=== PATIENT | female | born 1980 | race Caucasian/White ===

== ENCOUNTER 2019-12-13 14:11 | Outpatient (CLI) | payer MEDICAID, SELFPAY ==
--- NOTE | 2019-12-13 14:36 | PC.NURSE ---
[id number] Patient here outpatient for migraine. IVF's ordered and Depakote, Decadron, and Reglan. No other concerns voiced at this time.
[2019-12-13] MEDS: METOCLOPRAMIDE HCL INJ 10 MG/2 ML VIAL IV PUSH (15:20)
[2019-12-13] MEDS: DEXAMETHASONE SOD PHOS INJ 4 MG/ML VIAL IV PUSH (15:20)
[2019-12-13] MEDS: DIVALPROEX SODIUM 250 MG TABEC 500 MG PO (15:20)
[2019-12-13] MEDS: SODIUM CHLORIDE 0.9% IV 1,000 ML 1000 ML IVPB (15:25)
[2019-12-13 15:31] VITALS: BP 126/74; PULSE 78; RESP 14; TEMP 36.6; O2SAT 97
== END 2019-12-13 14:12 | disposition home or self-care (01) ==
PROVIDERS: PCP Nurse Practitioner Family; Visit Provider Nurse Practitioner Family
DX: G43.909 Migraine, unspecified, not intractable, without status migrainosus (principal)
CPT/HCPCS: 96360; 96361; A9270; J1100; J2765; J7030

== ENCOUNTER 2020-01-10 09:04 | Outpatient (CLI) | payer BC, MEDICAID, SELFPAY ==
[2020-01-10 22:47] LABS: SARS-CoV-2 RNA PCR Negative
== END 2020-01-10 09:05 | disposition home or self-care (01) ==
LOC: CHSLAB 09:05
PROVIDERS: PCP Nurse Practitioner Family; Visit Provider Nurse Practitioner Family
DX: Z20.828 Contact with and (suspected) exposure to other viral communicable diseases (principal)
CPT/HCPCS: 87635; C9803; U0003

== ENCOUNTER 2020-04-17 11:58 | Outpatient (CLI) | payer MEDICAID, SELFPAY ==
[2020-04-18 01:02] LABS: SARS-CoV-2 RNA PCR Negative
== END 2020-04-17 11:59 | disposition home or self-care (01) ==
LOC: CHSLAB 12:02
PROVIDERS: PCP Nurse Practitioner Family; Visit Provider Nurse Practitioner Family
DX: R09.81 Nasal congestion (principal); Z20.828 Contact with and (suspected) exposure to other viral communicable diseases
CPT/HCPCS: 87635; C9803; U0003

== ENCOUNTER 2020-06-06 10:04 | Outpatient (CLI) | payer BC, MEDICAID, SELFPAY ==
--- NOTE | ~2020-06-06 | XR_ITS ---
EXAMINATION: XR knee LT 3V DATE: 06/06/2020 10:39 INDICATION: Left knee pain. TECHNIQUE: 3 views of left knee on 4 radiographs were obtained. COMPARISON: None. FINDINGS: Bone alignment is normal. No fracture. Joint spaces are well maintained. There is no knee j oint effusion. IMPRESSION: 1. Normal left knee. Reviewed, dictated and finalized at location B. ING MECHANIC IMPRESSION: 1. Normal left knee.
== END 2020-06-06 10:05 | disposition home or self-care (01) ==
PROVIDERS: PCP Nurse Practitioner Family; Visit Provider Nurse Practitioner Family
DX: M25.561 Pain in right knee (principal)
CPT/HCPCS: 73562

== ENCOUNTER 2020-10-09 11:19 | Outpatient (CLI) | payer MEDICAID, SELFPAY ==
[2020-10-09 14:46] LABS: SARS-CoV-2 RNA PCR Negative (Negative)
== END 2020-10-09 11:20 | disposition home or self-care (01) ==
LOC: CHSLAB 11:23
PROVIDERS: PCP Nurse Practitioner Family; Visit Provider Nurse Practitioner Family
DX: Z20.822 Contact with and (suspected) exposure to COVID-19 (principal)
CPT/HCPCS: C9803; U0003; U0005

== ENCOUNTER 2020-12-08 17:34 | Outpatient (CLI) | payer OTHER, MEDICAID, SELFPAY ==
[2020-12-08 19:01] LABS: SARS-CoV-2 RNA PCR Negative (Negative)
== END 2020-12-08 17:35 | disposition home or self-care (01) ==
LOC: CHSLAB 17:39
PROVIDERS: PCP Nurse Practitioner Family; Visit Provider Nurse Practitioner Family
DX: Z20.822 Contact with and (suspected) exposure to COVID-19 (principal)
CPT/HCPCS: C9803; U0003; U0005

== ENCOUNTER 2021-11-20 13:54 | Outpatient (CLI) | payer OTHER, MEDICAID, SELFPAY ==
--- NOTE | ~2021-11-20 | XR_ITS ---
XR_CERV2-3V_CR DATE: 11/20/2021 14:29 INDICATION: Neck pain. No known injury. TECHNIQUE: AP, open-mouth, lateral views COMPARISON: None FINDINGS: There is reversal of cervical curvature which may be due to muscle spasm. Mild levoscoliosi s of cervical and upper thoracic spine C1 and C2 are normally aligned and the odontoid process is intact. There is moderately prominent loss of interspace height and prominent anterior spurring at C5-6. The remaining cervical interspaces are well preserved. No fracture or dislocation, locked facet or prevertebral soft tissue swelling. IMPRESSION: Reversal of cervical curvature and mild levoscoliosis Moderately prominent degenerative disc disease at C5-6 Reviewed, dictated and finalized at Location A. Reviewed, dictated and finalized at location A.
[2021-11-20 14:19] LABS: Basophils Absolute Auto 0.05 K/mm3 (0.00-0.10); Basophils Percent Auto 0.6 % (0.0-1.0); Eosinophils Absolute Auto 0.22 K/mm3 (0.02-0.50); Eosinophils Percent Auto 2.6 % (1.0-6.0); Hematocrit 47.1 % (35.0-49.0); Immature Granulocyte Absolute 0.03 K/mm3 (0.00-0.00); Immature Granulocyte Percent A 0.4 % (0.0-0.0); Lymphocytes Absolute Auto 2.76 K/mm3 (1.10-4.50); Lymphocytes Percent Auto 33.1 % (18.0-42.0); Mean Corpuscular Hemoglobin 30.5 pg (27.0-31.0); Mean Corpuscular Volume 89.9 fL (78.0-102.0); Monocytes Absolute Auto 0.67 K/mm3 (0.10-0.90); Neutrophils Absolute Auto 4.6 K/mm3 (1.7-7.2); Neutrophils Percent Auto 55.3 % (50.0-70.0); Platelet Count Result 242 K/mm3 (150-420); Red Blood Count 5.24 M/mm3 (4.20-5.40); Red Cell Distribution Width 12.6 % (11.6-14.4); White Blood Count 8.4 K/mm3 (4.8-10.8)
[2021-11-20 14:48] LABS: Aspartate Amino Transferase 12 U/L (15-37); Blood Urea Nitrogen 0 mg/dL (7-18)
[2021-11-20 15:05] LABS: Alanine Aminotransferase 33 U/L (14-59); Albumin Level 3.8 g/dL (3.4-5.0); Alkaline Phosphatase 102 U/L (46-116); Anion Gap 10 mmol/L (8-16); Bilirubin,Total 0.4 mg/dL (0.00-1.00); Calcium 8.9 mg/dL (8.5-10.1); Carbon Dioxide 25 mmol/L (21-32); Chloride 106 mmol/L (98-108); Estimated Glomerular Filt Rate > 60; Glucose 99 mg/dL (70-99); Magnesium 2.1 mg/dL (1.8-2.4); Osmolality Calculated 287 mOsm/kg (285-295); Potassium 3.9 mmol/L (3.5-5.1); Sodium 141 mmol/L (136-145)
[2021-12-01 13:25] LABS: Gliadin AB, IgG <1.0 U/mL (<15.0); Reticulin IgA Negative (Negative); TTG IGA AB <1.0 U/mL (<15.0)
== END 2021-11-20 13:55 | disposition home or self-care (01) ==
LOC: CHSIMG 13:56
PROVIDERS: PCP Nurse Practitioner Family; Visit Provider Nurse Practitioner Family
DX: M54.2 Cervicalgia (principal); R19.8 Other specified symptoms and signs involving the digestive system and abdomen; R11.2 Nausea with vomiting, unspecified; E83.42 Hypomagnesemia
CPT/HCPCS: 36415; 72040; 80053; 83516; 83735; 85025; 86255

== ENCOUNTER 2021-11-22 07:52 | Outpatient (CLI) | payer OTHER, MEDICAID, SELFPAY ==
--- NOTE | ~2021-11-22 | US_ITS ---
US abdomen limited INDICATION: Postprandial pain, nausea and vomiting. Weight loss. PROCEDURE: Realtime right upper abdominal ultrasound. COMPARISON: No prior studies for comparison. FINDINGS: The pancreas is normal without focal mass or pancreatic ductal dilation. There are 2 echog enic masses in the liver measuring 10 and 9 mm greatest dimension respectively. In the absence of kno wn malignancy these are likely benign hemangiomas. Recommend follow-up ultrasound as clinically indic ated. There is normal directional flow in the portal vein. The gallbladder is normal without stones, gallbladder wall thickening or pericholecystic fluid. Comm on bile duct measures 3) mm. No sonographic Montague's sign. IMPRESSION: 1: Hyperechoic liver nodules measuring 1 cm or less, most likely benign hemangiomas in the absence of known malignancy. Clinically correlate. If there is no malignancy, consider correlation with dynamic contrast-enhanced MRI. Otherwise, recommend follow-up ultrasound as clinically warranted. Reviewed, dictated and finalized at location A. IMPRESSION: 1: Hyperechoic liver nodules measuring 1 cm or less, most likely benign hemangi omas in the absence of known malignancy. Clinically correlate. If there is no m alignancy, consider correlation with dynamic contrast-enhanced MRI. Otherwise, recommend follow-up ultrasound as clinically warranted.
== END 2021-11-22 07:53 | disposition home or self-care (01) ==
LOC: CHSIMG 07:55
PROVIDERS: PCP Nurse Practitioner Family; Visit Provider Nurse Practitioner Family
DX: R10.9 Unspecified abdominal pain (principal)
CPT/HCPCS: 76705

== ENCOUNTER 2021-11-26 07:52 | Outpatient (RCR) | payer OTHER, MEDICAID, SELFPAY ==
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
== END 2021-11-28 23:59 | disposition home or self-care (01) ==
LOC: CHSPT 07:52
PROVIDERS: PCP Nurse Practitioner Family; Visit Provider Nurse Practitioner Family
DX: M40.202 Unspecified kyphosis, cervical region (principal)
CPT/HCPCS: 97014; 97110; 97140; 97161; G0283

== ENCOUNTER 2021-12-07 10:38 | Outpatient (CLI) | payer OTHER, MEDICAID, SELFPAY ==
--- NOTE | 2021-12-07 10:55 | PC.NURSE ---
Here for OP fluids and medications for headache
[2021-12-07] MEDS: SODIUM CHLORIDE 0.9% IV 1,000 ML 250 ML IVPB (11:14)
[2021-12-07] MEDS: METOCLOPRAMIDE HCL INJ 10 MG/2 ML VIAL IV PUSH (11:16)
[2021-12-07] MEDS: DEXAMETHASONE SOD PHOS INJ 4 MG/ML VIAL IV PUSH (11:19)
[2021-12-07] MEDS: DIVALPROEX SODIUM ER 500 MG TAB.24H PO (11:22)
--- NOTE | 2021-12-07 11:41 | PC.NURSE ---
Nausea has eased, white soda given
--- NOTE | 2021-12-07 15:35 | PC.NURSE ---
Patient completed IV infusoin. Patient stated headache was improved. Able to ambulate to car.
== END 2021-12-07 10:39 | disposition home or self-care (01) ==
LOC: CHSTREATRM 10:42
PROVIDERS: PCP Nurse Practitioner Family; Visit Provider Nurse Practitioner Family
DX: G43.909 Migraine, unspecified, not intractable, without status migrainosus (principal)
CPT/HCPCS: 96360; 96361; 96374; 96375; A9270; J1100; J2765; J7030

== ENCOUNTER 2021-12-11 09:50 | Outpatient (CLI) | payer OTHER, MEDICAID, SELFPAY ==
[2021-12-13 21:49] LABS: Lactoferrin, Stool Negative (Negative)
== END 2021-12-11 09:51 | disposition home or self-care (01) ==
LOC: CHSLAB 09:53
PROVIDERS: PCP Nurse Practitioner Family; Visit Provider Nurse Practitioner Family
DX: R19.8 Other specified symptoms and signs involving the digestive system and abdomen (principal)
CPT/HCPCS: 83630

== ENCOUNTER 2021-12-12 07:02 | Outpatient (CLI) | payer OTHER, MEDICAID, SELFPAY ==
--- NOTE | ~2021-12-12 | NM_ITS ---
EXAMINATION: NM hepatobiliary w pharm DATE: 12/12/2021 10:53 INDICATION: Abdominal pain, GERD and diarrhea COMPARISON: None. TECHNIQUE: 5.2 mCi Tc-99m mebrofenin (Choletec) was administered intravenously. Scintigraphic images of the abdomen were obtained for one hour. 1.6 mcg sincalide (Kinevac) was administered by slow intr avenous infusion, and imaging was continued for 30 minutes. Gallbladder ejection fraction was calcula victor manuel by the technologist. FINDINGS: There is normal clearance of radiotracer from the blood pool. There is homogeneous tracer uptake by t he liver. Activity progresses to the gallbladder and bowel. The gallbladder ejection fraction (GBEF) is 92% (normal 10-90%, but most patient with gallbladder dysfunction have GBEF < 35% which does over lap with the normal range). IMPRESSION: 1. Normal hepatobiliary scan Reviewed, dictated and finalized at location A.
== END 2021-12-12 07:03 | disposition home or self-care (01) ==
PROVIDERS: PCP Nurse Practitioner Family; Visit Provider Nurse Practitioner
DX: K21.9 Gastro-esophageal reflux disease without esophagitis (principal); K58.2 Mixed irritable bowel syndrome; K76.89 Other specified diseases of liver; R11.2 Nausea with vomiting, unspecified; R19.7 Diarrhea, unspecified; R19.8 Other specified symptoms and signs involving the digestive system and abdomen
CPT/HCPCS: 78227; A9537; J2805

== ENCOUNTER 2021-12-15 06:48 | Outpatient (CLI) | payer OTHER, MEDICAID, SELFPAY ==
--- NOTE | ~2021-12-15 | MR_ITS ---
EXAMINATION: MR abdomen wo/w con DATE: 12/15/2021 08:23 INDICATION: Liver mass. TECHNIQUE: Magnetic resonance imaging (MRI) of the abdomen was performed without and with 20 mL Multi Nick intravenous contrast. COMPARISON: Abdomen ultrasound 11/22/2021 FINDINGS: The liver, gallbladder, spleen, pancreas, adrenal glands, and kidneys are normal. There are no dilate d loops of bowel. There are no pathologically enlarged lymph nodes. There is no free intraperitoneal fluid. There are changes of posterior fusion procedure in lumbar spine. IMPRESSION: 1. Normal liver. No abnormal mass identified. Reviewed, dictated and finalized at location A.
== END 2021-12-15 06:49 | disposition home or self-care (01) ==
LOC: CHSIMG 06:49
PROVIDERS: PCP Nurse Practitioner Family; Visit Provider Nurse Practitioner Family
DX: K76.89 Other specified diseases of liver (principal)
CPT/HCPCS: 74183; A9577

== ENCOUNTER 2021-12-25 09:31 | Outpatient (CLI) | payer OTHER, MEDICAID, SELFPAY ==
--- NOTE | ~2021-12-25 | MR_ITS ---
EXAMINATION: MR cervical spine wo con DATE: 12/25/2021 11:21 INDICATION: Cervical degenerative disc disease. TECHNIQUE: Magnetic resonance imaging (MRI) of the cervical spine was performed without intravenous c ontrast. Sequences included sagittal T2-weighted FSE, sagittal T2-weighted FS FSE, sagittal T1-weight ed FSE, axial MERGE, and axial T2-weighted FSE. COMPARISON: Cervical spine radiographs 11/20/2021 FINDINGS: There is 2 mm retrolisthesis of C5 on C6. Vertebral body heights are normal. There is moder ately decreased disc height at C5-C6. The spinal cord signal intensity is normal. The following disc levels are specifically discussed: C2-C3: The disc does not extend beyond the endplate margin. There is no uncovertebral joint osteoarth ritis. There is no facet joint osteoarthritis. There is no neural foraminal stenosis. There is no sienna tral canal stenosis. C3-C4: The disc does not extend beyond the endplate margin. There is no uncovertebral joint osteoarth ritis. There is mild bilateral facet joint osteoarthritis. There is no neural foraminal stenosis. The re is no central canal stenosis. C4-C5: The disc does not extend beyond the endplate margin. There is no uncovertebral joint osteoarth ritis. There is no facet joint osteoarthritis. There is no neural foraminal stenosis. There is no sienna tral canal stenosis. C5-C6: There is a central extrusion. There is mild bilateral uncovertebral joint osteoarthritis. Ther e is mild bilateral facet joint osteoarthritis. There is mild right neural foraminal stenosis. There is mild central canal stenosis. C6-C7: The disc does not extend beyond the endplate margin. There is no uncovertebral joint osteoarth ritis. There is mild bilateral facet joint osteoarthritis. There is no neural foraminal stenosis. The re is no central canal stenosis. C7-T1: The disc does not extend beyond the endplate margin. There is no uncovertebral joint osteoarth ritis. There is mild bilateral facet joint osteoarthritis. There is no neural foraminal stenosis. The re is no central canal stenosis. IMPRESSION: 1. Moderate spondylosis at C5-C6 and mild spondylosis at other levels. Reviewed, dictated and finalized at location A.
== END 2021-12-25 09:32 | disposition home or self-care (01) ==
LOC: CHSIMG 09:33
PROVIDERS: PCP Nurse Practitioner Family; Visit Provider Nurse Practitioner Family
DX: M41.82 Other forms of scoliosis, cervical region (principal); M54.2 Cervicalgia
CPT/HCPCS: 72141

== ENCOUNTER 2022-01-30 08:53 | Outpatient (CLI) | payer OTHER, MEDICAID, SELFPAY ==
--- NOTE | 2022-01-30 09:20 | ECG_ITS ---
Measurements Intervals [place] Rate: 66 P: 62 UT: 129 QRS: 41 QRSD: 97 T: 55 QT: 362 QTc: 380 Interpretive Statements SINUS RHYTHM DELAYED PRECORDIAL R/S TRANSITION BASELINE ARTIFACT- I, II, AVR, AVL, AVF, V1-V6 BORDERLINE ECG NO PREVIOUS ECG AVAILABLE FOR COMPARISON Electronically Signed On 01-30-2022 14:39:01 CDT by Quinn Dowling D.O.
[2022-01-30 09:41] LABS: Alanine Aminotransferase 68 U/L (14-59); Albumin Level 3.8 g/dL (3.4-5.0); Alkaline Phosphatase 89 U/L (46-116); Amylase 44 U/L (25-115); Aspartate Amino Transferase 17 U/L (15-37); Bilirubin Direct 0.1 mg/dL (0-0.2); Bilirubin,Total 0.5 mg/dL (0.00-1.00); Lipase 122 U/L (73-393); Total Protein 6.8 g/dL (6.4-8.2)
[2022-01-30 09:43] LABS: Anion Gap 8 mmol/L (8-16); Carbon Dioxide 27 mmol/L (21-32); Chloride 104 mmol/L (98-108); Potassium 4.1 mmol/L (3.5-5.1); Sodium 139 mmol/L (136-145)
[2022-01-30 09:44] LABS: Blood Urea Nitrogen 16 mg/dL (7-18); Calcium 9.3 mg/dL (8.5-10.1); Estimated Glomerular Filt Rate > 60; Glucose 83 mg/dL (70-99); Osmolality Calculated 288 mOsm/kg (285-295)
== END 2022-01-30 08:54 | disposition home or self-care (01) ==
PROVIDERS: Anesthesiology; PCP Nurse Practitioner Family; Visit Provider Surgery
DX: R00.2 Palpitations (principal); I10 Essential (primary) hypertension; K81.1 Chronic cholecystitis; Z79.899 Other long term (current) drug therapy
CPT/HCPCS: 36415; 80048; 80076; 82150; 83690; 93005

== ENCOUNTER 2022-01-31 01:06 | Day surgery (SDC) | payer OTHER, MEDICAID, SELFPAY ==
[2022-01-28 12:40] VITALS: BMI 29.3
--- NOTE | 2022-01-28 12:59 | PC.NURSE ---
Report to the Outpatient Waiting Room, entrance under the green pavilion located off [facility], at time 0930 on date 01/31/22. OR Time: 1130. Time changes happen often and if your time is changed the preop area will call you the afternoon before. - You and your visitor will be asked to self-screen and do not enter if you have any COVID symptoms. - Only one visitor and NO children visitors are allowed at this time. - The patient visitor is requested to leave or wait in car when not with patient due to restrictions. - A mask is required within the hospital. Patients may have clear liquids (water, carbonated beverages, clear teas, apple juice) until 3 hours prior to surgery with a maximum of 20 ounces. - No food from midnight until time of surgery Take the following medications with a SIP of water the morning of surgery: AMLODIPINE, LAMOTRIGINE, PROPRANOLOL, VENLAFAXINE, HYDROXYZINE/ LORAZEPAM AND INHALER IF NEEDED Medications to discontinue per physician: MELOXICAM Date to take last dose: PER DR. BURGER Please no make-up, nail upper sorbian, hairspray, perfume, deodorant, or body powder the day of surgery. No jewelry (including any body piercings) or valuables the day of surgery, leave them at home. Please take a shower or bath the night before, or the morning of, surgery with an antibacterial soap(HIBICLENS). Wear comfortable, loose fitting clothing. Children are encouraged to wear pajamas. - Jewelry must be removed prior to entering the operating room. Rings and piercings that are not removed may be cut off. - The hospital will not accept responsibility for valuables. - Please leave all valuables, including medications, at home the day of surgery. If you are going home after surgery, a licensed trolley coach driver must drive you home. - NO public transportation without another adult. - We recommend that an adult stay with you for 24 hours following discharge. - We also recommend that you do not drive, make important decision, drink alcoholic beverages, or take any drugs that were not prescribed by your health care provider for at least 24 hours after your discharge time. Follow any additional instructions given to you from your surgeon. If you or anyone in your household have experienced Covid symptoms in the past week, please notify your surgeon or the nurse liaison at the phone number below for possible testing. Telephone instructions given to PT - LYNNETTE MANDEL and asked if any additional questions and then verbalized understanding. Patient advised to call surgeon office or pre surgery nurse liaison [phone] if any additional questions.
[2022-01-31] VITALS (13 sets, daily range): BP systolic 110–176; BP diastolic 77–98; PULSE 67–77; RESP 18–22; TEMP 36–36.2; O2SAT 92–98
--- NOTE | 2022-01-31 09:10 | WPDHPUPDATE1 ---
History and Physical Update Update Date/Time: 01/31/22 09:10 History and Physical has been reviewed, including an updated exam of the patient. There are NO changes in the patient's condition. Risks, benefits, and alternatives have been discussed and questions answered. Patient agrees to proceed with procedure.
[2022-01-31] MEDS: LACTATED RINGERS 1,000 ML 30 ML IV CONT ×2 (09:30→12:06)
[2022-01-31] MEDS: INDOCYANINE GREEN 25 MG VIAL IV PUSH (09:33)
[2022-01-31] MEDS: KETOROLAC 15 MG/ML VIAL (*BKC) IV PUSH (09:33)
[2022-01-31] MEDS: ACETAMINOPHEN 500 MG TABLET 1000 MG PO (09:33)
--- NOTE | 2022-01-31 09:54 | WPDANESEPPF ---
Anes - Initial Pre Proc Eval Procedure: Operation Date: 01/31/22 11:30 Proposed Procedures p Robotic Assisted Laparoscopic Cholecystectomy - Zakia Krueger MD Date/Time: 01/31/22 09:54 Surgeon: Zakia Krueger MD Pre Op Diagnosis: Cholecystitis with Cholelithiasis Patient Data Age: 41 Gender: F Height: 1.66 m Weight: 82 kg Last Vital Signs Temp 36.0 C L 01/31/22 09:48 Pulse 72 01/31/22 09:48 Resp 18 01/31/22 09:48 BP 136/80 01/31/22 09:48 Pulse Ox 98 01/31/22 09:48 O2 Del Method Room Air 01/31/22 09:48 Allergies Allergy/AdvReac Type Severity Reaction Status Date / Time amoxicillin Allergy Intermediate Diarrhea Verified 01/31/22 09:05 Penicillins Allergy Intermediate Diarrhea Verified 01/31/22 09:05 Home Medications Medication Instructions Recorded Confirmed Type albuterol 90 mcg/actuation aerosol 90 mcg inhalation Q4-6H PRN 06/03/19 01/31/22 History inhaler Bronchospasm venlafaxine 75 mg tablet 75 mg PO DAILY 02/16/20 01/31/22 History hydroxyzine HCl 25 mg tablet 25 mg PO TID PRN anxiety #20 tabs 05/15/20 01/31/22 Rx lorazepam 0.5 mg tablet 0.5 mg PO Q8H PRN anxiety #20 tabs 05/15/20 01/31/22 Rx amlodipine 10 mg tablet 10 mg PO DAILY #30 tabs 12/17/21 01/31/22 Rx propranolol 40 mg tablet 40 mg PO Q12H #60 tabs 01/01/22 01/31/22 Rx esomeprazole magnesium 40 mg 40 mg PO DAILY #30 caps 01/07/22 01/31/22 Rx capsule,delayed release (Nexium) famotidine 20 mg tablet 20 mg PO DAILY 01/14/22 01/31/22 History lamotrigine 100 mg tablet 100 mg PO DAILY 01/14/22 01/31/22 History prazosin-polythiazide 1 mg-0.5 mg 1 cap PO DAILY 01/14/22 01/31/22 History capsule sumatriptan succinate 100 mg tablet 100 mg PO ONCE 01/14/22 01/31/22 History meloxicam 15 mg tablet 15 mg PO DAILY 01/28/22 01/31/22 History Patient hx anesthesia problems: post op nausea/vomiting Family hx anesthesia problems: none Results Review: All pre-operative results and documents have been reviewed as part of the pre-operative evaluation. [facility] Past Medical History Medical History Asthma Colon cancer screening SACHIN (generalized anxiety disorder) GERD (gastroesophageal reflux disease) HTN (hypertension) IBS (irritable bowel syndrome) Irritable bowel syndrome with alternating bowel habits Kidney stones Migraine Nausea & vomiting Tobacco dependence Surgical History Surgical History History of back surgery History of placement of ear tubes History of tonsillectomy Family History Family History Mother Diabetes mellitus Hypertension Abnormal bleeding time Grandparent Cerebrovascular accident Social History Social History Social History: drinks coffee daily Smoking packs per day: 1 Smoking cigarettes per day: 20.0 Years smoked: 12 Smoking pack-years: 12.00 Smoking status: Current every day smoker Tobacco type: cigarettes Alcohol intake: current Alcohol use details: wine socially Substance use: never Substance use type: does not use Other substance usage details: THC/CBD GUMMIES AT NIGHT Living arrangements: with family Additional living arrangements comments: 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
[2022-01-31] MEDS: ceFAZolin 2 GM/D5W 50 ML 2 GM/50 ML BAG IVPB (10:42)
[2022-01-31] MEDS: BUPIVACAINE/EPINEPHRINE 0.25% 50 ML VIAL 30 ML INFILTRATE (11:11)
--- NOTE | 2022-01-31 12:19 | W.PM.PROC2 ---
Procedure Note - Detailed Date of Procedure 01/31/22 Pre-op Diagnosis Cholecystitis with Cholelithiasis Post-op Diagnosis Same Procedure Performed Robotic assisted cholecystectomy Surgeon Zakia Krueger MD Anesthesia General Indications 41-year-old female presenting to the office with workup and imaging c/w chronic cholecystitis, cholelithiasis. Findings moderate cholecystitis, cholelithiasis Description of Procedure The patient was taken to the operating room and placed in the supine position. After adequate induction of general anesthesia, the patient was prepped and draped in the normal sterile fashion. A time-out was then done to verify the patient's identity, as well as the procedure being performed. I began by making a 8 mm incision in the periumbilical region. A Veress needle was then placed in the peritoneal cavity and CO2 gas was insufflated. After adequate pneumoperitoneum was achieved, the Veress needle was removed and a 8 mm Optiview trocar was placed under direct visualization. Once into the abdominal cavity, the introducer was removed and the laparoscope was placed through this trocar site. Under direct visualization, I placed a further 12 mm port in the left mid abdomen and 2 8 mm ports in the right mid abdomen. The robot was then docked to these ports sites. I then went to the console. The gallbladder was then identified and noted to be moderately inflamed and distended. I was able to place a grasper at the dome of the gallbladder and this was retracted up and over the liver. A 2nd retractor was used to grasp the infundibulum and retracted laterally. This allowed visualization and dissection of the triangle of Calot. There were some omental adhesions to the gallbladder and these were taken down with the cautery. I then began dissection around the triangle Calot. I first identified the cystic duct, I was able to visualize the entirety of the duct from its proximal insertion into the gallbladder 2 at the distal junction with the common hepatic/common bile duct junction. I did use the firefly visualization at this point to confirm the anatomy. The proximal cystic duct was then further skeletonized, clipped, and transected. Next I visualized the cystic artery. Again the structure was skeletonized, clipped, and transected. I then again used firefly to confirm anatomy and no aberrant anatomy was noted. I then used the Bovie cautery to take down the peritoneal attachments of the gallbladder off the liver bed. Once the gallbladder specimen was completely detached, an Endo pouch was placed through the 12 mm port site and the gallbladder specimen was placed in the endo-pouch and subsequently removed. I then re-examined the right upper quadrant. Hemostasis was noted in the liver bed and the clips were noted to be in good position on both the duct and the artery. No other pathology was seen in the right upper quadrant. All instruments were then removed and the robot was undocked. I then closed the 12 incision at the fascial level using a Zach cone and 0 Vicryl suture under direct visualization. The abdomen was then desufflated and all ports were removed. All port sites were then closed with 4-0 Monocryl subcuticular suture. Dermabond was placed on each was wound. The patient tolerated the procedure well and was extubated in the operating room postop. The patient will now be transferred to the recovery room in stable condition. Estimated Blood Loss 5 Drains No Packing No Pathology Yes Complications No immediate complications Condition Stable Disposition PACU [facility] Billing Surgery - Charge Forward: Surgery Billing
[2022-01-31] MEDS: fentaNYL CITRATE INJ (*CRX) 100 MCG/2 ML VIAL 25 MCG IV PUSH ×4 (12:30→12:42)
[2022-01-31] MEDS: ONDANSETRON INJ 4 MG/2 ML VIAL IV PUSH (12:32)
[2022-01-31] MEDS: HYDROmorphone HCL INJ (*CRX) 1 MG/ML SYR 0.5 MG IV PUSH ×4 (12:49→13:22)
[2022-01-31] MEDS: diphenhydrAMINE HCl INJ 50 MG/ML VIAL 25 MG IV PUSH ×2 (12:51→13:18)
[2022-01-31] MEDS: oxyCODONE HCL (*CRX) 5 MG TAB IR PO (14:08)
[2022-01-31] MEDS: IBUPROFEN 400 MG TABLET 800 MG PO (14:33)
== END 2022-01-31 15:38 | disposition home or self-care (01) ==
PROVIDERS: PCP Nurse Practitioner Family; Visit Provider Surgery
PROC: 0FT44ZZ Resection of Gallbladder, Percutaneous Endoscopic Approach (ICD-10-PCS; CPT 47562; principal; 2022-01-31 11:30)
DX: K81.1 Chronic cholecystitis (principal); J45.909 Unspecified asthma, uncomplicated; I10 Essential (primary) hypertension; K21.9 Gastro-esophageal reflux disease without esophagitis; K58.2 Mixed irritable bowel syndrome; F41.1 Generalized anxiety disorder; F17.210 Nicotine dependence, cigarettes, uncomplicated; F12.90 Cannabis use, unspecified, uncomplicated; Z79.51 Long term (current) use of inhaled steroids
CPT/HCPCS: 47562; 36415; 86850; 86900; 86901; 88304; A9270; J0690; J1100; J1170; J1200; J1885; J2250; J2405; J2704; J2710; J3010; J7120

== ENCOUNTER 2022-02-01 11:35 | Emergency (ER) | payer OTHER, MEDICAID, SELFPAY ==
[2022-02-01] VITALS (12 sets, daily range): BP systolic 119–156; BP diastolic 81–99; PULSE 60–78; RESP 12–25; TEMP 37.1; O2SAT 96–98
--- NOTE | ~2022-02-01 | CT_ITS ---
EXAMINATION: CTA chest PE abdomen pel DATE: 02/01/2022 13:56 INDICATION: Chest and abdominal pain post cholecystectomy yesterday TECHNIQUE: Computed tomography angiography (CTA) of the chest was performed with 100 mL Omnipaque-350 intravenous contrast timed to evaluate the pulmonary arteries. Subsequent postcontrast images of the abdomen and pelvis are obtained. Coronal maximum intensity projection 3D-reconstructions were create d by the technologist. The dose-length product (DLP) was 1079.61 mGy-cm. Automated exposure control a nd iterative reconstruction technique were employed. COMPARISON: None. FINDINGS: CTA CHEST: The pulmonary arteries are well-opacified. No pulmonary embolism is identified. There is d ependent atelectasis. There are trace pleural effusions. No pneumothorax is identified. No pathologic ally enlarged thoracic lymph nodes are identified. The heart size is normal. ABDOMEN/PELVIS CT: The gallbladder is surgically absent. There is a trace volume of fluid in the righ t upper quadrant. The liver, spleen, pancreas, and adrenal glands are normal. The kidneys are unremar kable. No pathologically enlarged abdominal or pelvic lymph nodes are identified. There is no free in traperitoneal gas or evidence of bowel obstruction. There are changes of anterior and posterior fusio n at L5-S1. A small amount gas is seen in the umbilicus, most consistent with laparoscopic port inser tion. There is an umbilical hernia containing fat. Small foci of gas are present in the right lower q uadrant abdominal wall, also consistent with recent surgery. IMPRESSION: 1. No pulmonary embolus. 2. Trace pleural effusions and bilateral dependent atelectasis. 3. Small volume of right upper quadrant fluid, likely related to recent cholecystectomy. Reviewed, dictated and finalized at location B. IMPRESSION: 1. No pulmonary embolus. 2. Trace pleural effusions and bilateral dependent atelectasis. 3. Small volume of right upper quadrant fluid, likely related to recent cholecy stectomy.
--- NOTE | 2022-02-01 11:43 | ECG_ITS ---
Measurements Intervals [place] Rate: 65 P: 67 NC: 137 QRS: 41 QRSD: 90 T: 58 QT: 366 QTc: 383 Interpretive Statements SINUS RHYTHM BASELINE ARTIFACT- V4 NORMAL ECG COMPARED TO ECG 01/30/2022 09:21:16 NO SIGNIFICANT CHANGES Electronically Signed On 02-01-2022 21:20:43 CDT by Quinn Dowling D.O.
--- NOTE | 2022-02-01 12:07 | ED.GENADULT ---
HPI - General Adult General Chief complaint: Unspecified Stated complaint: post surgical pain - gallbladder removed 01/31 Time Seen by Provider: 02/01/22 12:03 History of Present Illness HPI narrative: 41-year-old female presents to the emergency room today for severe postop pain. She was here yesterday for outpatient surgery for cholecystectomy. Her surgeon is Dr. Krueger. She has had severe pain through her abdomen since she had her surgery. She is also having pain through her chest and says that it hurts to breathe. This makes her feel short of breath. She is very tearful and appears very uncomfortable. She has not had any fever or chills. She has had nausea but no vomiting. She took her prescribed Doxy codon this morning around 5 AM but says it has not helped at all. Related Data Home Medications Medication Instructions Recorded Confirmed albuterol 90 mcg/actuation aerosol 90 mcg inhalation Q4-6H PRN 06/03/19 01/31/22 inhaler Bronchospasm venlafaxine 75 mg tablet 75 mg PO DAILY 02/16/20 01/31/22 famotidine 20 mg tablet 20 mg PO DAILY 01/14/22 01/31/22 lamotrigine 100 mg tablet 100 mg PO DAILY 01/14/22 01/31/22 prazosin-polythiazide 1 mg-0.5 mg 1 cap PO DAILY 01/14/22 01/31/22 capsule sumatriptan succinate 100 mg tablet 100 mg PO ONCE 01/14/22 01/31/22 meloxicam 15 mg tablet 15 mg PO DAILY 01/28/22 01/31/22 Allergies Allergy/AdvReac Type Severity Reaction Status Date / Time amoxicillin Allergy Intermediate Diarrhea Verified 02/01/22 11:56 Penicillins Allergy Intermediate Diarrhea Verified 02/01/22 11:56 Review of Systems Review of Systems: CONSTITUTIONAL: Denies fever, chills, or sweats. EYES: Denies visual changes, redness, or discharge. ENT: Denies rhinorrhea, congestion, sore throat, or otalgia. CARDIOVASCULAR: Describes bilateral chest pain with inspiration. RESPIRATORY: Reports feeling short of breath due to pain. No cough or chest congestion. GASTROINTESTINAL: As per HPI GENITOURINARY: Denies dysuria or hematuria. SKIN: Denies rash or itching. No redness swelling or drainage to post op incision sites. MUSCULOSKELETAL: Denies back pain, joint pain, or myalgia. NEUROLOGIC: Denies headache, numbness, dizziness, or weakness. PSYCHIATRIC: Denies anxiety or depression. [facility] Past Medical History Medical History Asthma Colon cancer screening SACHIN (generalized anxiety disorder) GERD (gastroesophageal reflux disease) HTN (hypertension) IBS (irritable bowel syndrome) Irritable bowel syndrome with alternating bowel habits Kidney stones Migraine Nausea & vomiting Tobacco dependence Surgical History Surgical History History of back surgery History of placement of ear tubes History of tonsillectomy Family History Family History Mother Diabetes mellitus Hypertension Abnormal bleeding time Grandparent Cerebrovascular accident Social History Social History Social History: drinks coffee daily Smoking packs per day: 1 Smoking cigarettes per day: 20.0 Years smoked: 12 Smoking pack-years: 12.00 Smoking status: Current every day smoker Tobacco type: cigarettes Alcohol intake: current Alcohol use details: wine socially Substance use: never Substance use type: does not use Other substance usage details: THC/CBD GUMMIES AT NIGHT Additional living arrangements comments: 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 Nontoxic appearing HEAD: Normocephalic, atraumatic. EYES: PERRLA and EOMI. NECK: Supple. No adenopathy or masses. No carotid bruits or JVD CHEST: Clear to auscultation. No respiratory distress. No wheezes rales or rhonchi HEART:
[2022-02-01] MEDS: SODIUM CHLORIDE 0.9% IV 1,000 ML 999 ML IV CONT (12:40)
[2022-02-01] MEDS: ONDANSETRON INJ 4 MG/2 ML VIAL IV PUSH (12:41)
[2022-02-01] MEDS: HYDROmorphone HCL INJ (*CRX) 1 MG/ML SYR IV PUSH (12:41)
[2022-02-01 12:44] LABS: Basophils Percent Auto 0.2 % (0.2-1.2); Eosinophils Percent Auto 0.3 % (0-4.4); Hematocrit 42.7 % (37.0-47.0); Hemoglobin 14.1 g/dL (12.0-15.0); Immature Granulocyte Absolute 0.07 K/mm3 (0.00-0.031); Immature Granulocyte Percent A 0.5 % (0-0.5); Lymphocytes Absolute Auto 2.31 K/mm3 (0.9-3.2); Lymphocytes Percent Auto 16.6 % (18.3-44.2); Mean Corpuscular Hemoglobin 30.5 pg (26-34); Mean Corpuscular Volume 92.4 fl (80-100); Mean Platelet Volume 9.7 fl (7.4-10.4); Monocytes Absolute Auto 0.9 K/mm3 (0.1-0.6); Monocytes Percent Auto 6.6 % (2.6-8.5); Neutrophils Absolute Auto 10.5 K/mm3 (1.3-6.7); Neutrophils Percent Auto 75.8 % (45.5-73.1); Platelet Count Result 232 k/mm3 (150-375); Red Blood Count 4.62 M/mm3 (4.2-5.4); Red Cell Distribution Width 13.4 % (11.5-14.5); White Blood Count 13.9 K/mm3 (4.5-10.0)
[2022-02-01 12:56] LABS: Alanine Aminotransferase 400 U/L (6-35); Albumin Level 3.6 g/dL (3.5-5.1); Alkaline Phosphatase 87 U/L (38-126); Anion Gap 5 mmol/L (8-16); Aspartate Amino Transferase 140 U/L (14-36); Bilirubin,Total 0.7 mg/dL (0.2-1.3); Blood Urea Nitrogen 15 mg/dL (7-17); Calcium 8.9 mg/dL (8.4-10.2); Carbon Dioxide 28 mmol/L (22-30); Chloride 105 mmol/L (98-107); Estimated CRCL calculation 100 ml/min; Estimated Glomerular Filt Rate > 60; Glucose 88 mg/dL (65-110); Lipase 32 U/L (23-300); Potassium 3.9 mmol/L (3.4-5.0); Sodium 138 mmol/L (137-145)
[2022-02-01 13:08] LABS: Troponin I < 0.012 ng/mL (0.000-0.034)
[2022-02-01 13:15] LABS: D Dimer 0.72 ug/mL (<0.48)
[2022-02-01] MEDS: HYDROmorphone HCL INJ (*CRX) 1 MG/ML SYR 0.5 MG IV PUSH (14:42)
[2022-02-01] MEDS: KETOROLAC 30 MG/ML VIAL (*BKC) IV PUSH (15:29)
== END 2022-02-01 16:15 | disposition home or self-care (01) ==
PROVIDERS: Emergency Provider Nurse Practitioner Family; PCP Nurse Practitioner Family
DX: G89.18 Other acute postprocedural pain (principal); R10.9 Unspecified abdominal pain; J45.909 Unspecified asthma, uncomplicated; K21.9 Gastro-esophageal reflux disease without esophagitis; I10 Essential (primary) hypertension; K58.9 Irritable bowel syndrome, unspecified; Z87.442 Personal history of urinary calculi; F41.1 Generalized anxiety disorder; F17.210 Nicotine dependence, cigarettes, uncomplicated
CPT/HCPCS: 36415; 71275; 74177; 80053; 81025; 83605; 83690; 84484; 85025; 85380; 93005; 96361; 96374; 96375; 96376; 99284; J1170; J1885; J2405; J7030; Q9967

== ENCOUNTER 2022-03-18 10:25 | Outpatient (CLI) | payer OTHER, MEDICAID, SELFPAY ==
--- NOTE | ~2022-03-18 | CT_ITS ---
EXAMINATION: CT abdomen pelvis wo con DATE: 03/18/2022 10:53 INDICATION: Lower abdominal pain since gallbladder surgery last month. Still unable to lift heavy obj ects. TECHNIQUE: Computed tomography (CT) of the abdomen and pelvis was performed without intravenous contr ast. Automated exposure control and iterative reconstruction technique were employed. Exam dose: 680 .06 mGy-cm total exam DLP. COMPARISON: 02/01/2022 CTA chest abdomen pelvis FINDINGS: The lung bases are clear. Normal heart size. No pericardial or pleural effusion. Small sliding hiatal hernia. Status post cholecystectomy. No hepatic, splenic, pancreatic, adrenal or renal space-occupying mass lesion is evident on this limi victor manuel noncontrast examination. No bile duct or pancreatic duct dilatation. The gallbladder fossa is unr emarkable, without abnormal fluid collection or inflammation. No urinary tract calculus or hydroureteronephrosis. Normal caliber of the abdominal aorta. No intraperitoneal or retroperitoneal or pelvic mass lesion or adenopathy or ascites. The uterus and adnexal areas and urinary bladder are unremarkable. No bowel obstruction, bowel wall thickening, pneumatosis or intraperitoneal free air. Normal appendix . Fat-containing umbilical hernia measures up to 2 cm with, 2.7 cm AP dimension.. Status post posterior and interbody spinal fusion at L5-S1. 4 mm retrolisthesis and mild degenerative disc disease at L4-5. No suspicious osteolytic or osteoblastic lesions. IMPRESSION: Small sliding hiatal hernia Status post cholecystectomy Status post posterior and interbody spinal fusion at L5-S1 4 mm retrolisthesis and mild degenerative disc disease at L4-5 Reviewed, dictated and finalized at [facility]. Reviewed, dictated and finalized at location A.
== END 2022-03-18 10:26 | disposition home or self-care (01) ==
LOC: ANHIMG 10:32
PROVIDERS: PCP Nurse Practitioner Family; Visit Provider Surgery
DX: K44.9 Diaphragmatic hernia without obstruction or gangrene (principal); M51.36 Other intervertebral disc degeneration, lumbar region; Z90.49 Acquired absence of other specified parts of digestive tract
CPT/HCPCS: 74176

== ENCOUNTER 2022-06-24 00:50 | Day surgery (SDC) | payer OTHER, SELFPAY ==
[2022-06-12 08:22] VITALS: BMI 31.7
[2022-06-24 09:30] VITALS: BP 119/92; PULSE 80; RESP 18; TEMP 36; O2SAT 100; BMI 31.9
[2022-06-24] MEDS: LACTATED RINGERS 1,000 ML 150 ML IV CONT (09:46)
--- NOTE | 2022-06-24 09:57 | WPDANESEPPF ---
Anes - Initial Pre Proc Eval Procedure: Operation Date: 06/24/22 11:00 Proposed Procedures p Esophagogastroduodenoscopy - Ronal Valdes MD Date/Time: 06/24/22 09:57 Surgeon: Ronal Valdes MD Pre Op Diagnosis: dysphagia Patient Data Age: 42 Gender: F Height: 1.65 m Weight: 87.1 kg Last Vital Signs Temp 36.0 C L 06/24/22 09:30 Pulse 80 06/24/22 09:30 Resp 18 06/24/22 09:30 BP 119/92 H 06/24/22 09:30 Pulse Ox 100 06/24/22 09:30 O2 Del Method Room Air 06/24/22 09:30 Allergies Allergy/AdvReac Type Severity Reaction Status Date / Time amoxicillin AdvReac Intermediate Diarrhea Verified 06/24/22 09:35 Penicillins AdvReac Intermediate Diarrhea Verified 06/24/22 09:35 Home Medications Medication Instructions Recorded Confirmed Type albuterol 90 mcg/actuation aerosol 90 mcg inhalation Q4-6H PRN 06/03/19 06/24/22 History inhaler Bronchospasm venlafaxine 75 mg tablet 75 mg PO DAILY 02/16/20 06/24/22 History lorazepam 0.5 mg tablet 0.5 mg PO Q8H PRN anxiety #20 tabs 05/15/20 06/24/22 Rx propranolol 40 mg tablet 40 mg PO Q12H #60 tabs 01/01/22 06/24/22 Rx famotidine 20 mg tablet 20 mg PO DAILY PRN Indigestion 01/14/22 06/24/22 History lamotrigine 100 mg tablet 100 mg PO DAILY 01/14/22 06/24/22 History sumatriptan succinate 100 mg tablet 50 mg PO DAILY PRN Migraine 01/14/22 06/24/22 History Headache meloxicam 15 mg tablet 15 mg PO DAILY PRN Pain 01/28/22 06/24/22 History amlodipine 10 mg tablet 10 mg PO DAILY #30 tabs 02/19/22 06/24/22 Rx albuterol sulfate 0.63 mg/3 mL 0.63 mg (3 mL) inhalation Q4-6H 04/16/22 06/24/22 Rx solution for nebulization PRN shortness of breath or wheezing #75 mL benzonatate 200 mg capsule 200 mg PO BID PRN cough #20 caps 04/16/22 06/24/22 Rx pantoprazole 40 mg tablet,delayed 40 mg PO BID #60 tabs 05/27/22 06/24/22 Rx release (Protonix) Patient hx anesthesia problems: none Family hx anesthesia problems: none Results Review: All pre-operative results and documents have been reviewed as part of the pre-operative evaluation. [facility] Past Medical History Medical History Asthma Colon cancer screening SACHIN (generalized anxiety disorder) GERD (gastroesophageal reflux disease) HTN (hypertension) IBS (irritable bowel syndrome) IBS (irritable bowel syndrome) Irritable bowel syndrome with alternating bowel habits Kidney stones Migraine Nausea & vomiting Tobacco dependence Surgical History Surgical History History of back surgery History of placement of ear tubes History of tonsillectomy Hx laparoscopic cholecystectomy 01/31/22 Family History Family History Mother Diabetes mellitus Hypertension Abnormal bleeding time Grandparent Cerebrovascular accident Social History Social History Social History: drinks coffee daily Smoking packs per day: 1 Smoking cigarettes per day: 20.0 Years smoked: 12 Smoking pack-years: 12.00 Smoking status: Current every day smoker Tobacco type: cigarettes Alcohol intake: current Alcohol use details: 3 drinks wine monthly Substance use: current Substance use type: other Other substance usage details: THC/CBD gummies Lack of Transportation: No Lack of Food: Never True Current Housing: I Have Housing Concerned About Future Housing: No Difficulty Paying Gas/Electric Bills: No Difficulty Paying for Meds: No Currently Unemployed: No Education: Bachelor's Degree Difficulty w/ Childcare or Family Care: No Living arrangements: with family Additional living arrangements comments: Occupation/Education: occupation 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
--- NOTE | 2022-06-24 10:25 | WPDHPUPDATE1 ---
History and Physical Update Update Date/Time: 06/24/22 10:25 History and Physical has been reviewed, including an updated exam of the patient. There are NO changes in the patient's condition. Risks, benefits, and alternatives have been discussed and questions answered. Patient agrees to proceed with procedure.
[2022-06-24 10:38] VITALS: BP 106/82; PULSE 85; RESP 16; O2SAT 98
[2022-06-24 10:47] VITALS: BP 114/87; PULSE 76; RESP 18; O2SAT 99
[2022-06-24 10:59] VITALS: BP 127/92; PULSE 72; RESP 21; O2SAT 100
== END 2022-06-24 11:04 | disposition home or self-care (01) ==
PROVIDERS: PCP Nurse Practitioner Family; Visit Provider Internal Medicine Gastroenterology
PROC: 0DJ08ZZ Inspection of Upper Intestinal Tract, Via Natural or Artificial Opening Endoscopic (ICD-10-PCS; CPT 43235; principal; 2022-06-24 11:00)
DX: K21.9 Gastro-esophageal reflux disease without esophagitis (principal); K44.9 Diaphragmatic hernia without obstruction or gangrene; K29.50 Unspecified chronic gastritis without bleeding; I10 Essential (primary) hypertension; K58.9 Irritable bowel syndrome, unspecified; J45.909 Unspecified asthma, uncomplicated; F41.1 Generalized anxiety disorder; F17.210 Nicotine dependence, cigarettes, uncomplicated; F12.90 Cannabis use, unspecified, uncomplicated; E66.9 Obesity, unspecified; Z68.32 Body mass index [BMI] 32.0-32.9, adult; Z79.51 Long term (current) use of inhaled steroids
CPT/HCPCS: 43239; 88305; J2704; J7120

== ENCOUNTER 2023-01-21 16:36 | Outpatient (CLI) | payer OTHER, SELFPAY ==
--- NOTE | ~2023-01-21 | XR_ITS ---
EXAMINATION: XR chest 2V Exam Date/Time: 01/21/2023 16:44 CDT HISTORY: COUGH AND CONGESTION X 2 WEEKS Comparison: 09/23/2005. RESULT: Lines, tubes, and devices: None. Lungs and pleura: Clear. Cardiomediastinal silhouette: Stable. Other: No acute osseous or upper abdominal finding. IMPRESSION: No acute cardiopulmonary process. Reviewed, dictated and finalized at location K.
== END 2023-01-21 16:37 | disposition home or self-care (01) ==
LOC: CHSIMG 16:38
PROVIDERS: PCP Nurse Practitioner Family; Visit Provider Nurse Practitioner Family
DX: R05.9 Cough, unspecified (principal)
CPT/HCPCS: 71046

== ENCOUNTER 2023-01-21 16:54 | Emergency (ER) | payer OTHER, SELFPAY ==
[2023-01-21] VITALS (13 sets, daily range): BP systolic 113–156; BP diastolic 86–112; PULSE 85–117; RESP 15–33; TEMP 36.4–37.2; O2SAT 95–99
--- NOTE | ~2023-01-21 | CT_ITS ---
EXAMINATION: CT diagnostic chest wo con DATE: 01/21/2023 18:58 INDICATION: WEAKNESS/COUGH TECHNIQUE: Computed tomography (CT) of the chest was performed with 100 mL Omnipaque-350 intravenous contrast. Automated exposure control and iterative reconstruction technique were employed. The dose-l ength product was 378.27 mGy-cm. COMPARISON: X-ray chest, same date; [facility] 02/01/2022. FINDINGS: CHEST: Thoracic aorta: No significant dilation or calcification. Lung parenchyma and airways: Lungs and airways are clear. Thoracic inlet, axillae and chest wall: No thyroid or soft tissue mass. No axillary lymphadenopathy. Mediastinum: No mass or lymphadenopathy. Heart and pericardium: Normal heart size. No pericardial effusion. Coronary artery calcifications: Absent. Pleura: No effusion or mass. Upper abdomen: No significant finding. Thoracic bones: No acute osseous finding in the chest. IMPRESSION: No acute thoracic process detected. Reviewed, dictated and finalized at location K.
--- NOTE | 2023-01-21 17:00 | ECG_ITS ---
Measurements Intervals [place] Rate: 109 P: 56 NH: 124 QRS: 28 QRSD: 105 T: 50 QT: 322 QTc: 434 Interpretive Statements SINUS TACHYCARDIA NONSPECIFIC ST & T-WAVE ABNORMALITY- INF/HIGH LAT LEADS BASELINE WANDER- II, III, V4-V6 ABNORMAL ECG COMPARED TO ECG 02/01/2022 11:48:[address] NOW PRESENT [address]-T WAVE ABNORMALITY NOW PRESENT Electronically Signed On 01-21-2023 20:10:46 CDT by Quinn Dowling D.O.
--- NOTE | 2023-01-21 17:26 | PC.NURSE ---
PT REPORTS SHE HAS NOT FELT GOOD X2 WEEKS, AND NO REAL IMPROVEMENT WITH PREVIOUS TREATMENTS.
[2023-01-21 17:27] LABS: Basophils Absolute Auto 0.13 K/mm3 (0.00-0.10); Basophils Percent Auto 0.8 % (0.0-1.0); Eosinophils Absolute Auto 0.18 K/mm3 (0.02-0.50); Eosinophils Percent Auto 1.1 % (1.0-6.0); Hematocrit 46.8 % (35.0-49.0); Hemoglobin 15.7 g/dL (12.0-15.0); Immature Granulocyte Absolute 0.22 K/mm3 (0.00-0.00); Immature Granulocyte Percent A 1.4 % (0.0-0.0); Lymphocytes Absolute Auto 4.75 K/mm3 (1.10-4.50); Lymphocytes Percent Auto 29.9 % (18.0-42.0); Mean Corpuscular HGB Conc 33.5 g/dL (32.0-36.0); Mean Corpuscular Hemoglobin 29.8 pg (27.0-31.0); Mean Platelet Volume 9.7 fl (9.2-11.8); Monocytes Absolute Auto 0.93 K/mm3 (0.10-0.90); Monocytes Percent Auto 5.9 % (2.0-11.0); Neutrophils Absolute Auto 9.7 K/mm3 (1.7-7.2); Neutrophils Percent Auto 60.9 % (50.0-70.0); Platelet Count Result 271 K/mm3 (150-420); Red Blood Count 5.26 M/mm3 (4.20-5.40); Red Cell Distribution Width 12.2 % (11.6-14.4); White Blood Count 15.9 K/mm3 (4.8-10.8)
[2023-01-21] MEDS: methylPREDNISolone SOD SUCC 125 MG VIAL IV PUSH (17:38)
[2023-01-21 17:49] LABS: Alanine Aminotransferase 65 U/L (14-59); Albumin Level 3.4 g/dL (3.4-5.0); Alkaline Phosphatase 109 U/L (46-116); Anion Gap 10 mmol/L (8-16); Aspartate Amino Transferase 19 U/L (15-37); Bilirubin,Total 0.5 mg/dL (0.00-1.00); Blood Urea Nitrogen 13 mg/dL (7-18); Carbon Dioxide 26 mmol/L (21-32); Chloride 103 mmol/L (98-108); Estimated CRCL calculation 78 ml/min; Estimated Glomerular Filt Rate > 60; Glucose 137 mg/dL (70-99); Lipase 23 U/L (16-77); Osmolality Calculated 290 mOsm/kg (285-295); Sodium 139 mmol/L (136-145)
[2023-01-21 17:50] LABS: Troponin I < 4.0 ng/L (0.00-60.4)
[2023-01-21] MEDS: POTASSIUM CHLORIDE 20 MEQ ER TABLET PO (18:01)
[2023-01-21] MEDS: IPRATROPIUM 0.5 MG/ALBUTEROL SULFATE 2.5 MG AMPUL.NEB 3 ML INHALATION (18:01)
[2023-01-21 18:03] LABS: Influenza A QL RT-PCR Negative (Negative); Influenza B QL RT-PCR Negative (Negative); SARS-CoV-2 RNA PCR Negative (Negative)
[2023-01-21 18:07] LABS: RSV RNA, RT-PCR Negative (Negative)
--- NOTE | 2023-01-21 18:20 | ED.SOB ---
HPI - SOB/Dyspnea General Chief Complaint: Shortness of Breath/Dyspnea Stated Complaint: SOB Time Seen by Provider: 01/21/23 16:57 Source: patient and family Mode of arrival: ambulatory Limitations: no limitations History of Present Illness HPI Narrative: patient is a 42-year-old female a with shortness breath and coughing. She went to her doctor a week ago and they gave her some antibiotics and steroids but she is still having problems. She just stopped smoking cigarettes in the past week. MD elicited complaint: shortness of breath and cough Onset (ago): week(s) Context: recent illness Timing: constant and progressively worsening Severity: moderate Exacerbating factors: nothing Relieving factors: nothing Associated symptoms: cough and chest congestion Treatment prior to arrival: none Related Data Home oxygen amount: none Home Medications Medication Instructions Recorded Confirmed venlafaxine 75 mg tablet 75 mg PO DAILY 02/16/20 01/21/23 Allergies Allergy/AdvReac Type Severity Reaction Status Date / Time amoxicillin AdvReac Intermediate Diarrhea Verified 01/21/23 17:05 Penicillins AdvReac Intermediate Diarrhea Verified 01/21/23 17:05 Review of Systems Review of Systems: All systems reviewed & are unremarkable except as noted in HPI and below Constitutional: Constitutional: Reports no additional constitutional complaints Eyes: Eyes: Reports no additional eye complaints ENT: Reports system reviewed and no additional complaints, except as documented Cardiovascular: Cardiovascular: Reports no additional cardiovascular complaints Respiratory: Respiratory: Reports no additional respiratory complaints Gastrointestinal: Gastrointestinal: Reports no additional gastrointestinal complaints Genitourinary: Genitourinary: Reports no additional female genitourinary complaints Musculoskeletal: Musculoskeletal: Reports no additional musculoskeletal complaints Integumentary/Breasts: Skin/Breast: Reports system reviewed and no additional complaints, except as docu Neurologic: Reports system reviewed and no additional complaints, except as documented Psychiatric: Psychiatric: Reports no additional psychiatric complaints Endocrine: Endocrine: Reports no additional endocrine complaints Hematologic/Lymphatic: Hematologic/Lymphatic: Reports no additional hematologic/lymphatic complaints Allergic/Immunologic: Allergic/Immunologic: Reports no additional allergic/immunologic complaints PMFSH Past Medical History Medical History Asthma Colon cancer screening Functional dyspepsia Functional heartburn SACHIN (generalized anxiety disorder) GERD (gastroesophageal reflux disease) GERD (gastroesophageal reflux disease) Hiatal hernia HTN (hypertension) IBS (irritable bowel syndrome) IBS (irritable bowel syndrome) Irritable bowel syndrome with alternating bowel habits Kidney stones Migraine Nausea & vomiting Tobacco dependence Surgical History Surgical History History of back surgery History of placement of ear tubes History of tonsillectomy Hx laparoscopic cholecystectomy 01/31/22 Family History Family History Mother Diabetes mellitus Hypertension Abnormal bleeding time Grandparent Cerebrovascular accident Social History Social History Social History: drinks coffee daily Smoking packs per day: 1 Smoking cigarettes per day: 20.0 Years smoked: 12 Smoking pack-years: 12.00 Smoking status: Current every day smoker Tobacco type: cigarettes Alcohol intake: current Alcohol use details: 3 drinks wine monthly Substance use: current Substance use type: other Other substance usage details: THC/CBD gummies Lack of Transportation: No Lack of Food: Never True Current Housing: I
[2023-01-21 18:28] LABS: Appearance Urine Clear (Clear); Bilirubin Urine Negative (Negative); Blood Urine Negative (Negative); Color Urine Yellow (Yellow); Glucose Urine UA Negative (Negative); Ketones Urine Negative (Negative); Leukocyte Esterase Ur Negative LEU/UL (Negative); Nitrate Urine Negative (Negative); Protein Urine Negative (Negative); Specific Grav Ur >= 1.030 (1.010-1.020)
--- NOTE | 2023-01-21 18:29 | PC.NURSE ---
PT IS AWAITING URINE PREG RESULTS FOR CT EXAM AT THIS TIME. PT AMBULATORY TO RR, WITH COUGHING NOTED TO EXACERBATED BY EXERTION. PT TOLERATED NEB TX WITHOUT DISTRESS. WILL CONTINUE TO MONITOR. AT BEDSIDE. COUGHING HAS MILDLY IMPROVED POST NEB TX.
[2023-01-21 18:30] LABS: Add Urine Microscopic? NO
[2023-01-21 18:32] LABS: Pregnancy On Board Control Positive; Urine Pregnancy Test Negative
--- NOTE | 2023-01-21 19:04 | PC.NURSE ---
report to chica major, pt is awaiting ct results at this time. remains at the bedside.
[2023-01-21] MEDS: levoFLOXacin TAB 500 MG, levoFLOXacin TAB 250 MG 750 MG PO (19:24)
[2023-01-21] MEDS: HYDROcodone/acetaminophen (*CRX) 10-325 MG TABLET 1 TAB PO (19:24)
== END 2023-01-21 19:38 | disposition home or self-care (01) ==
PROVIDERS: Emergency Provider Emergency Medicine; PCP Nurse Practitioner Family
DX: J40 Bronchitis, not specified as acute or chronic (principal); J18.9 Pneumonia, unspecified organism; R06.02 Shortness of breath; I10 Essential (primary) hypertension; F17.210 Nicotine dependence, cigarettes, uncomplicated; Z20.822 Contact with and (suspected) exposure to COVID-19
CPT/HCPCS: 36415; 71250; 80053; 81003; 81025; 83690; 84484; 85025; 85380; 87637; 93005; 94640; 96374; 99284; A9270; J2930

== ENCOUNTER 2023-11-19 13:21 | Outpatient (CLI) | payer OTHER, SELFPAY ==
[2023-11-19 13:43] LABS: Basophils Absolute Auto 0.09 K/mm3 (0.00-0.10); Basophils Percent Auto 0.8 % (0.0-1.0); Eosinophils Percent Auto 2.7 % (1.0-6.0); Hematocrit 47.5 % (35.0-49.0); Hemoglobin 15.8 g/dL (12.0-15.0); Immature Granulocyte Absolute 0.05 K/mm3 (0.00-0.00); Immature Granulocyte Percent A 0.5 % (0.0-0.0); Lymphocytes Absolute Auto 2.23 K/mm3 (1.10-4.50); Lymphocytes Percent Auto 20.1 % (18.0-42.0); Mean Corpuscular HGB Conc 33.3 g/dL (32-36); Mean Corpuscular Hemoglobin 29.6 pg (27.0-31.0); Mean Corpuscular Volume 89.1 fL (78.0-102.0); Mean Platelet Volume 9.8 fl (9.2-11.8); Monocytes Absolute Auto 0.65 K/mm3 (0.10-0.90); Monocytes Percent Auto 5.9 % (2.0-11.0); Neutrophils Absolute Auto 7.76 K/mm3 (1.70-7.20); Platelet Count Result 279 K/mm3 (150-420); Red Blood Count 5.33 M/mm3 (4.20-5.40); Red Cell Distribution Width 13.2 % (11.6-14.4); White Blood Count 11.1 K/mm3 (4.8-10.8)
[2023-11-19 13:54] LABS: Hemoglobin A1C 5.3 % (<5.7)
[2023-11-19 14:15] LABS: Appearance Urine Clear (Clear); Bilirubin Urine Negative (Negative); Blood Urine Negative (Negative); Color Urine Yellow (Yellow); Glucose Urine UA Negative (Negative); Ketones Urine Negative (Negative); Leukocyte Esterase Ur Negative LEU/UL (Negative); Nitrate Urine Negative (Negative); Protein Urine Negative (Negative); Specific Grav Ur 1.015 (1.010-1.020); Urobilinogen Urine 0.2 mg/dL (0.2-1.0)
[2023-11-19 14:33] LABS: Alanine Aminotransferase 45 U/L (14-59); Albumin Level 3.9 g/dL (3.4-5.0); Alkaline Phosphatase 100 U/L (46-116); Anion Gap 12 mmol/L (4-12); Aspartate Amino Transferase 23 U/L (15-37); Bilirubin,Total 0.6 mg/dL (0.00-1.00); Blood Urea Nitrogen 16 mg/dL (7-18); Carbon Dioxide 21 mmol/L (21-32); Chloride 104 mmol/L (98-108); Estimated Glomerular Filt Rate > 60; Glucose 97 mg/dL (70-99); Osmolality Calculated 285 mOsm/kg (285-295); Potassium 4.7 mmol/L (3.5-5.1); Sodium 137 mmol/L (136-145)
[2023-11-19 14:39] LABS: Add Urine Microscopic? NO
[2023-11-21 15:47] LABS: Vitamin D 25 Hydroxy 21 ng/mL (30-100)
[2023-11-23 08:33] LABS: Insulin Level Total 11.9 uIU/mL
== END 2023-11-19 13:22 | disposition home or self-care (01) ==
PROVIDERS: PCP Nurse Practitioner Family; Visit Provider Nurse Practitioner Family
DX: R73.09 Other abnormal glucose (principal); R10.12 Left upper quadrant pain; R35.0 Frequency of micturition; I10 Essential (primary) hypertension; Z79.899 Other long term (current) drug therapy
CPT/HCPCS: 36415; 80053; 81003; 82306; 83036; 83525; 85025

== ENCOUNTER 2024-01-21 12:06 | Emergency (ER) | payer OTHER, SELFPAY ==
--- NOTE | ~2024-01-21 | CT_ITS ---
EXAMINATION: CT brain wo con DATE: 01/21/2024 12:54 INDICATION: Left-sided head injury post fall down stairs TECHNIQUE: Computed tomography (CT) of the head was performed without intravenous contrast. Sagittal and coronal reconstructions were performed. The mA was adjusted according to patient size. Iterative reconstruction technique was employed. The dose-length product was 605.33 mGy-cm. COMPARISON: None FINDINGS: No fracture. No acute intracranial hemorrhage, acute infarction or abnormal extra axial fluid collect ion. Ventricles are normal and symmetric. No mass/mass effect. Mild mucoperiosteal thickening the melody ateral ethmoid sinuses. The orbits, paranasal sinuses and mastoid air cells are normal. IMPRESSION: 1. No fracture or acute intracranial process. Reviewed, dictated and finalized at location A.
--- NOTE | ~2024-01-21 | XR_ITS ---
AP and lateral views of the left tibia/fibula Clinical History: Trauma Findings: No acute fracture or dislocation is seen. Osseous alignment is anatomic. Joint spaces are p reserved without significant erosive or degenerative change. Soft tissues are unremarkable. Impression: Unremarkable left tib-fib radiographs. Reviewed, dictated and finalized at [facility]. Impression: Unremarkable left tib-fib radiographs.
--- NOTE | ~2024-01-21 | CT_ITS ---
EXAMINATION: CT lumbar spine wo con DATE: 01/21/2024 12:55 INDICATION: Severe lumbar pain post fall down stairs TECHNIQUE: Computed tomography (CT) of the lumbar spine was performed without intravenous contrast. A utomated exposure control and iterative reconstruction technique were employed. The dose-length produ ct was 1417.50 mGy-cm. COMPARISON: 03/18/2022 FINDINGS: L5 laminectomy and partial S1 laminectomy. Instrumented L5-S1 anterior and posterior spinal fusion wi th interbody fusion device and bilateral vertical nano and pedicle screw fixation. For millimeter retr olisthesis L4 on L5. Vertebral body heights are normal. No fracture. Mild disc height loss at L3-L4. Moderate disc height loss at L4-L5. Mild to moderate bilateral sacral iliac osteoarthritis. Paraverte bral soft tissues are unremarkable. The following disc levels are specifically discussed: T11-T12: The disc does not extend beyond the endplate margin. There is mild bilateral facet joint ost eoarthritis. There is no neural foraminal stenosis. There is no central canal stenosis. T12-L1: The disc does not extend beyond the endplate margin. There is mild bilateral facet joint oste oarthritis. There is no neural foraminal stenosis. There is no central canal stenosis. L1-L2: The disc does not extend beyond the endplate margin. There is mild bilateral facet joint osteo arthritis. There is no neural foraminal stenosis. There is no central canal stenosis. L2-L3: The disc does not extend beyond the endplate margin. There is mild to moderate bilateral facet joint osteoarthritis. There is no neural foraminal stenosis. There is no central canal stenosis. L3-L4: Disc is bulging. There is mild bilateral facet joint osteoarthritis. There is mild left and mi nimal right neural foraminal stenosis. There is mild central canal stenosis. L4-L5: Unable to assess the margins of the disc due to streak artifact from the bilateral vertical ro d and pedicle screw fixation. There is mild bilateral facet joint osteoarthritis. There is moderate b ilateral neural foraminal stenosis. There is no central canal stenosis. L5-S1: Anterior and posterior spinal fusion and posterior decompression. There is no neural foraminal stenosis. There is no central canal stenosis. IMPRESSION: 1. Mild to moderate lower lumbar spondylosis with posterior decompression and combined instrumented a nterior and posterior spinal fusion at L5-S1. No acute osseous abnormality. Reviewed, dictated and finalized at location A. IMPRESSION: 1. Mild to moderate lower lumbar spondylosis with posterior decompression and c ombined instrumented anterior and posterior spinal fusion at L5-S1. No acute os seous abnormality.
--- NOTE | 2024-01-21 12:15 | PC.NURSE ---
DR RAINEY STATED TO WAIT FOR CT RESULTS PRIOR TO ADMINISTERING TORADOL.
--- NOTE | 2024-01-21 12:18 | ED.FALL ---
HPI - Fall General Chief Complaint: Head Injury Stated Complaint: FALL, HEAD INJURY Time Seen by Provider: 01/21/24 12:15 Source: patient Mode of arrival: ambulatory Limitations: no limitations History of Present Illness HPI Narrative: Patient is a 43-year-old female with a significant past medical history presents today forA fall. Patient fell few days ago and hit her head and C she does not remember anything about the fall. She does not remember if she fell dizzy or anything before the fall and 4 she fell and then had had then felt dizzy she is not sure. For now she currently has a headache and states she also started to have urinary incontinence. She says urinary incontinence started a few days ago after the fall as well. She also has hardware in her back she has a history of having a lumbar fusion and now is having the urinary incontinence and also lumbar pain as well. She also hit her left hardwick when she fell and states she is still having pain there is well. MD complaint: fall Onset (ago): day(s) Fall from: standing Fall witnessed: no Place fall occurred: home Loss of consciousness: yes Prolonged down time: no Symptoms prior to fall: other (unsure) Context: tripped/slipped Location of injury: head and back Severity: moderate Severity scale (1-10): 5 Quality: sharp and stabbing Associated symptoms (after fall): headache, numbness and lightheaded Related Data Home Medications Medication Instructions Recorded Confirmed venlafaxine 75 mg tablet 75 mg PO DAILY 02/16/20 01/21/24 Allergies Allergy/AdvReac Type Severity Reaction Status Date / Time amoxicillin AdvReac Intermediate Diarrhea Verified 01/21/24 11:29 Penicillins AdvReac Intermediate Diarrhea Verified 01/21/24 11:29 Review of Systems Review of Systems: All systems reviewed & are unremarkable except as noted in HPI and below Constitutional: Constitutional: Reports as per HPI Eyes: Eyes: Reports no additional eye complaints ENT: Reports system reviewed and no additional complaints, except as documented Cardiovascular: Cardiovascular: Reports no additional cardiovascular complaints Respiratory: Respiratory: Reports no additional respiratory complaints Gastrointestinal: Gastrointestinal: Reports no additional gastrointestinal complaints Genitourinary: Genitourinary: Reports no additional female genitourinary complaints Musculoskeletal: Musculoskeletal: Reports as per HPI Integumentary/Breasts: Skin/Breast: Reports system reviewed and no additional complaints, except as docu Neurologic: Reports as per HPI, Reports headache(s) and Reports numbness Psychiatric: Psychiatric: Reports no additional psychiatric complaints Endocrine: Endocrine: Reports no additional endocrine complaints Hematologic/Lymphatic: Hematologic/Lymphatic: Reports no additional hematologic/lymphatic complaints Allergic/Immunologic: Allergic/Immunologic: Reports no additional allergic/immunologic complaints PMFSH Past Medical History Medical History Asthma Colon cancer screening Functional dyspepsia Functional heartburn SACHIN (generalized anxiety disorder) GERD (gastroesophageal reflux disease) GERD (gastroesophageal reflux disease) Hiatal hernia HTN (hypertension) IBS (irritable bowel syndrome) IBS (irritable bowel syndrome) Irritable bowel syndrome with alternating bowel habits Kidney stones Migraine Nausea & vomiting Tobacco dependence Surgical History Surgical History History of back surgery History of placement of ear tubes History of tonsillectomy Hx laparoscopic cholecystectomy 01/31/22 Family History Family History Mother Diabetes mellitus Hypertension Abnormal bleeding time Grandparent Cerebrovascular accident Social History Social History (Reviewed 01/21/24 @ 12:26 by Angel Mckinnon
[2024-01-21 12:39] VITALS: BP 116/84; PULSE 86; RESP 18; TEMP 36.9; O2SAT 97
--- NOTE | 2024-01-21 13:27 | PC.NURSE ---
OK TO GIVE TORADOL PER DR RAINEY.
[2024-01-21] MEDS: KETOROLAC (*BKC) 60 MG/2 ML VIAL IM (13:34)
[2024-01-21 13:38] VITALS: BP 101/75; PULSE 64; RESP 18; O2SAT 96
== END 2024-01-21 14:50 | disposition home or self-care (01) ==
PROVIDERS: Emergency Provider Family Medicine; PCP Nurse Practitioner Family
DX: S06.0XAA Concussion with loss of consciousness status unknown, initial encounter (principal); M47.816 Spondylosis without myelopathy or radiculopathy, lumbar region; I10 Essential (primary) hypertension; F17.210 Nicotine dependence, cigarettes, uncomplicated; W19.XXXA Unspecified fall, initial encounter
CPT/HCPCS: 70450; 72131; 73590; 96372; 99284; J1885

== ENCOUNTER 2024-06-03 08:32 | Outpatient (NON) | payer OTHER, SELFPAY ==
[2024-06-03 09:18] LABS: Add Urine Microscopic? YES; Appearance Urine Clear (Clear); Bilirubin Urine Negative (Negative); Blood Urine Negative (Negative); Color Urine Yellow (Yellow); Glucose Urine UA Negative (Negative); Ketones Urine Negative (Negative); Leukocyte Esterase Ur Negative LEU/UL (Negative); Nitrate Urine Positive (Negative); Protein Urine Negative (Negative); Specific Grav Ur 1.015 (1.010-1.020); Urobilinogen Urine 0.2 mg/dL (0.2-1.0)
[2024-06-03 09:36] LABS: Bacteria Urine 2+ /hpf; RBC Urine None seen /hpf (0-2); Squamous Epithelial Cell Urine Moderate /hpf (Few); WBC Urine None seen /hpf (0-3)
== END 2024-06-03 08:33 | disposition home or self-care (01) ==
LOC: CHSLAB 08:33
PROVIDERS: PCP Nurse Practitioner Family; Visit Provider Nurse Practitioner Family
DX: Z87.898 Personal history of other specified conditions (principal)
CPT/HCPCS: 81001; 87086; 87186

== ENCOUNTER 2024-12-31 06:55 | Day surgery (SDC) | payer OTHER, SELFPAY ==
[2024-12-16 13:05] VITALS: BMI 27.9
--- OUTSIDE RECORDS SUMMARY | 2024-12-31 06:56 | XMS_ITS | Clinical Summary ---
Author Organization [facility] Address [address] [place] [address] Care Team Providers Care Cloth Reeler Name Role Phone No, Physician Primary Care Provider [phone] Allergies Active Allergy Reactions Criticality Noted Date Comments Penicillins Vomiting Low 06/21/2022 Medications pantoprazole sodium (PROTONIX ORAL) Take by mouth Active venlafaxine HCl (VENLAFAXINE ORAL) Take by mouth Active SUMATRIPTAN SUCCINATE ORAL Take by mouth Active lamoTRIgine (LaMICtal) 100 mg tablet Take 1 tablet (100 mg total) by mouth daily Active LORazepam (ATIVAN) 0.5 mg tablet Take 1 tablet (0.5 mg total) by mouth every 6 (six) hours as needed for anxiety Active amLODIPine (NORVASC) 10 mg tablet Take 1 tablet (10 mg total) by mouth daily Active propranolol HCl (PROPRANOLOL ORAL) Take by mouth Active meloxicam (MOBIC) 15 mg tablet Take 15 mg by mouth daily Active Active Problems No known active problems Surgical History Surgery Date Site/Laterality Comments BACK SURGERY TONSILLECTOMY AND ADENOIDECTOMY CHOLECYSTECTOMY Medical History Medical History Date Comments Hypertension GERD (gastroesophageal reflux disease) Social History Tobacco Use Types Packs/Day Years Used Date Smoking Tobacco: Every Day Cigarettes 1 5 Comments Unknown Sex and Gender Information Value Date Recorded Sex Assigned at Not on file Legal Sex Female 1:38 PM RN 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 Gender Identity Not on file Sexual Orientation Not on file Obstetrics History Last Filed Vital Signs Vital Sign Reading Time Taken Comments Blood Pressure 127/87 09/17/2022 10:27 AM CDT Pulse 83 09/17/2022 10:27 AM CDT Temperature 36.6 C (97.9 F) 09/17/2022 10:27 AM CDT Respiratory Rate 16 09/17/2022 10:27 AM CDT Oxygen Saturation 99% 09/17/2022 10:27 AM CDT Inhaled Oxygen Concentration - - Weight 88 kg (194 lb) 09/17/2022 10:27 AM CDT Height 166.4 cm (5' 5.5) 09/17/2022 10:27 AM CD T Body Mass Index 31.79 09/17/2022 10:27 AM CDT Plan of Treatment Health Maintenance Due Date Last Done Comments Breast Cancer Screening-Mammogram 1982 Cervical Cancer Screening 1982 Depression Screening 1982 Hepatitis C Screening 1982 DTaP/Tdap/Td Vaccine (1 - Tdap) 1993 Varicella Vaccines (1 of 2 - 13+ 2-dose series) 1994 Hepatitis B Screening 2000 Regular Well Visit/Exam 18-64 2000 Pneumococcal vaccine <65 (1 of 2 - PCV) 2001 HPV Vaccines (1 - 3-dose SCDM series) 2009 Influenza Vaccine (#1) 2025 Insurance [facility] Care Teams Cloth Reeler Relationship Specialty Start Date End Date No, Physician PCP - General 09/17/22
--- OUTSIDE RECORDS SUMMARY | 2024-12-31 06:56 | XMS_ITS | Clinical Summary ---
Author Organization [facility] Address [address] [place] [address] Care Team Providers Care Pool Table Operator Name Role Phone Sigrid Hernandez APRN-BRICKLAYER Primary Care Provid er Source Comments [facility],non-owned Affiliates and Associated Physician Practices is amultiple site organization consisting of ambulatory clinics and hospital sitesin [place], [place], [place] and [place]. This disclosure is being madepursuant to the Care Everywhere program and may not contain all information available regarding this patient. Last updated 18.[facility] Allergies Active Allergy Reactions Criticality Noted Date Comments Penicillins Vomiting Medium 12/11/2018 And severe diarrhea Medications * Be aware that medications may not be up to date on this document. Alwaysverify current medications with the patient. vitamin D3 (Cholecalcifero l) 75 MCG (3000 UT) tablet Take 2,000 Units by mouth once daily Active famotidine (Pepcid) 10 MG tablet Take 10 mg by mouth as needed Active meclizine (Antivert) 25 MG tablet Take 5 mg by mouth 2 times daily as needed Active pantoprazole EC (Protonix) 20 MG tablet Take 40 mg by mouth once daily Active sertraline (Zoloft) 25 MG tablet Take 25 mg by mouth once daily Active SUMAtriptan-nap roxen (Treximet) 85-500 MG tablet Take 150 tablets by mouth daily as needed - may repeat one time Active amLODIPine-ator vastatin (Caduet) 10-10 MG tablet Take 1 tablet by mouth once daily Active venlafaxine (Effexor) 37.5 MG tablet Take 75 mg by mouth 3 times daily with meals Active hydrOXYzine HCl (Atarax) 25 MG tablet Take 25 mg by mouth 4 times daily as needed for Itching Active lamoTRIgine (LaMICtal) 100 MG tablet Take 100 mg by mouth 2 times daily Active prazosin (Minipress) 1 MG capsule Take 1 mg by mouth Active cyclobenzaprine (Flexeril) 5 MG tablet Take 5 mg by mouth 3 times daily as needed Active traMADol (Ultram) 25 MG TABS tablet Take by mouth every 6 hours as needed Active meloxicam (Mobic) 15 MG tablet Take 15 mg by mouth once daily Active ALPRAZolam (Xanax) 0.5 MG tablet Take 0.5 mg by mouth as needed for Anxiety Before procedures Active Active Problems No known active problems Social History Tobacco Use Types Packs/Day Years Used Date Smoking Tobacco: Every Day Cigarettes Smokeless Tobacco: Never Alcohol Use Standard Drinks/Week Comments Yes 0 (1 standard drink = 0.6 oz pur e alcohol) RARELY Comments Unknown Sex and Gender Information Value Date Recorded Sex Assigned at Not on file Legal Sex Female 10:59 AM CDT Gender Identity Not on file Sexual Orientation Not on file Last Filed Vital Signs Vital Sign Reading Time Taken Comments Blood Pressure 131/90 03/04/2022 10:22 AM CDT Pulse 86 03/04/2022 10:22 AM CDT Temperature 37.8 C (100 F) 01/16/2022 9:25 AM CDT Respiratory Rate - - Oxygen Saturation 95% 03/04/2022 10:22 AM CDT Inhaled Oxygen Concentration - - Weight 81.6 kg (180 lb) 01/16/2022 9:25 AM CDT Height 165.1 cm (5' 5) 01/16/2022 9:25 AM CDT Body Mass Index 29.95 01/16/2022 9:25 AM CDT Plan of Treatment Health Maintenance Due Date Last Done Comments MAMMOGRAM 1982 HIV SCREENING 1997 HEPATITIS C SCREENING 05/08/2000 DTAP/TDAP/TD VACCINES (1 - Tdap) 2001 HEPATITIS B VACCINE (1 of 3 - 19+ 3-dose series) 2001 PNEUMOCOCCAL VACCINE (1 of 2 - PCV) 2001 PAP SMEAR 2003 HPV VACCINE (1 - 3-dose SCDM series) 2009 COVID-19 VACCINE (1 - 2023-2 5 season) 2024 DEPRESSION SCREENING 05/19/2024 INFLUENZA VACCINE (#1) 2025 ZOSTER VACCINE (1 of 2) 2032 HIB VACCINE Aged Out No longer eligi ble based on patient's age to complete this topic MENINGOCOCCAL (Group B) VACC INE SHARED DECISION-MAKING Aged Out No longer eligibl e based on patient's age to complete this topic MENINGOCOCCAL GROUPS A/C/Y/W VACCINE Aged Out No longer eligible b ased on patient's age to complete this topic Insurance [facility] MEDICAID - [place] MEDICAID - OUT OF STATE AETNA Care Teams Pool Table Operator Relationship Specialty Start Date End Date Sigrid Hernandez, PERSONAL COMPUTER NETWORK ENGINEER-BRICKLAYER [address] [place] [address] PCP - General 07/11/22
--- OUTSIDE RECORDS SUMMARY | 2024-12-31 06:56 | XMS_ITS | Continuity of Care Document ---
Author Organization [facility] [place] [facility] Address [address] [place] [address] [address] [place] [address] Phone Care Team Providers Care Assistant Nurse Manager Name Role Phone Douglas OD, Maury Unavailable Unavailable Procedures Procedure Date Office/outpatient Visit, Est Eye Exam, New Patient Advance Directives Directive Yes / No Effective Date File Name No Information Encounters Encounter Description Practice Location Reason(s) For Visit Diagnoses Date Provider Providers Copied on Encounter Office/outpat ient Visit, Est [facility], [address] [place] [address] [address], [place], [place], [id number], tel:[phone] [facility] [place] No Information Feb-0 9-200 7 Douglas OD Maury. [address] , [address], [place], [address], [place]. tel:[phone] [facility], [address] [place] [address] [address], [place], [place], [id number], tel:[phone] [facility] [place] No Information Feb-0 5-200 7 Doisy Edward. [address] , [address], [place], [address], [place]. tel:[phone] Family History Family Member Type Diagnosis Age At Onset No Information Payers Payer name Insurance type Covered constitution party ID Authordominica drew(s) [facility] [id number] Social History Type Description Quantity Date Captured Comments Sex Female Smoking Status No Information Chief Complaint And Reason For Visit No Information Reason For Referral Reason For Referral No Information History Of Present Illness Encounter Date Complaint History Of Prese nt Illness No Information Functional Status Date Functional Assessmen t No Information Instructions Date Instruction Additional Infor mation No Information Assessments Type Assessment Date No Information Patient Care Teams Name Effective Dates (start - stop) Status Members No Information
[2024-12-31 09:54] VITALS: BP 125/74; PULSE 63; RESP 16; TEMP 36.1; O2SAT 100; BMI 27.3
[2024-12-31 09:59] LABS: BEDSIDEPREGUCG Negative (Negative)
[2024-12-31] MEDS: LACTATED RINGERS 1,000 ML 150 ML IV CONT (10:09)
--- NOTE | 2024-12-31 10:14 | P.PNAN_ITS ---
Anes - Initial Pre Proc Eval Procedure: Operation Date: 12/31/24 11:15 Proposed Procedures p Colonoscopy - Ronal Valdes MD Date/Time: 12/31/24 10:14 Surgeon: Ronal Valdes MD Pre Op Diagnosis: Hx of adenomatous and serrated colon polyps Patient Data Age: 44 Gender: F Height: 1.68 m Weight: 76.7 kg Last Vital Signs Temp 36.1 C L 12/31/24 09:54 Pulse 63 12/31/24 09:54 Resp 16 12/31/24 09:54 BP 125/74 12/31/24 09:54 Pulse Ox 100 12/31/24 09:54 O2 Del Method Room Air 12/31/24 09:54 Allergies Allergy/AdvReac Type Severity Reaction Status Date / Time amoxicillin AdvReac Intermediate Diarrhea Verified 12/31/24 09:50 Penicillins AdvReac Intermediate Diarrhea Verified 12/31/24 09:50 Home Medications ?Medication ?Instructions ?Recorded ?Confirmed ?Type venlafaxine 75 mg tablet 75 mg PO DAILY 02/16/20 12/31/24 History meclizine 12.5 mg tablet 12.5 mg PO TID PRN dizziness #30 12/31/23 12/16/24 Rx tabs sumatriptan succinate 50 mg tablet See Rx Instructions .Route 05/20/24 12/31/24 Rx .COMPLEX #90 tabs albuterol sulfate 0.63 mg/3 mL 0.63 mg (3 mL) inhalation Q4-6H 06/02/24 12/16/24 Rx solution for nebulization PRN shortness of breath or wheezing #75 mL albuterol sulfate 90 mcg/actuation 1 puff inhalation Q4H PRN 06/02/24 12/16/24 Rx aerosol inhaler (Ventolin HFA) shortness of breath or wheezing #8 grams azithromycin 250 mg tablet See Rx Instructions PO .COMPLEX #6 06/02/24 12/16/24 Rx (Zithromax Z-Manolo) tabs benzonatate 200 mg capsule 200 mg PO BID PRN cough #30 caps 06/02/24 12/16/24 Rx dextroamphetamine-amphetamine 10 10 mg PO DAILY 06/02/24 12/31/24 History mg tablet paroxetine HCl 12.5 mg 12.5 mg PO DAILY 06/02/24 12/31/24 History tablet,extended release 24 hr amitriptyline 25 mg tablet 25 mg PO QHS #30 tabs 07/20/24 12/31/24 Rx dicyclomine 20 mg tablet 20 mg PO .every 6 hours PRN #120 07/20/24 12/16/24 Rx tabs lorazepam 0.5 mg tablet 0.5 mg PO Q8H PRN anxiety #20 tabs 08/26/24 12/16/24 Rx amlodipine 10 mg tablet See Rx Instructions .Route 08/30/24 12/31/24 Rx .COMPLEX #30 tabs propranolol 40 mg tablet See Rx Instructions .Route 10/12/24 12/31/24 Rx .COMPLEX #60 tabs esomeprazole magnesium 40 mg See Rx Instructions .Route 11/15/24 12/31/24 Rx capsule,delayed release .COMPLEX #30 caps clonidine HCl 0.1 mg tablet 0.1 mg PO DAILY 12/16/24 12/31/24 History Laboratory Tests 12/31/24 09:54 POC Urine HCG, Qual Negative (Negative) HCG: negative Patient hx anesthesia problems: none Family hx anesthesia problems: none Results Review: All pre-operative results and documents have been reviewed as part of the pre- operative evaluation. COUNTS INCLUDE 234 BEDS AT [facility] Past Medical History Medical History Hiatal hernia Functional heartburn Functional dyspepsia GERD (gastroesophageal reflux disease) IBS (irritable bowel syndrome) Kidney stones Colon cancer screening IBS (irritable bowel syndrome) Nausea & vomiting Irritable bowel syndrome with alternating bowel habits Migraine Tobacco dependence SACHIN (generalized anxiety disorder) GERD (gastroesophageal reflux disease) Asthma HTN (hypertension) Surgical History Surgical History Hx laparoscopic cholecystectomy 01/31/22 History of tonsillectomy History of placement of ear tubes History of back surgery Family History Family History Mother Diabetes mellitus Hypertension Abnormal bleeding time Grandparent Cerebrovascular accident Social History Social History Social History: drinks coffee daily Smoking packs per day: 1 Smoking cigarettes per day: 20.0 Years smoked: 14 Smoking pack-years: 14.00 Smoking status: Current every day smoker Tobacco type: cigarettes Alcohol intake: current Alcohol use details: Occasionally Substance use: current Substance use type: marijuana Other substance usage details: vape/edibles to help sleep Lack of Transportation: No Lack of Food: Never True Current Housing: I Have Housing Concerned About Future Housing: No Difficulty Paying Gas/Electric Bills: No Difficulty Paying for Meds: No Currently Unemployed: No Education: Bachelor's Degree Difficulty w/ Childcare or Family Care: No Living arrangements: with family Additional living arrangements comments: Occupation/Education: occupation 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 Informed Consent: The patient's anesthetic plan and its attendant risks and benefits were discussed with the patient/family/POA. Questions were solicited and answers provided to the satisfaction of the patient/family/POA.
--- NOTE | 2024-12-31 10:17 | P.HP_ITS ---
History of Present Illness History of Present Illness Consent: Risks, benefits, and alternatives have been discussed and questions answered. Patient agrees to proceed with procedure. Chief complaint: Hx of adenomatous and serrated colon polyps Narrative: Lynne Redmond is a 44 year old female with ibs and colon polyp 2019, here for another colonoscopy Review of Systems Review of Systems: All systems reviewed & are unremarkable except as noted in HPI and below PMFSH Past Medical History Medical History Hiatal hernia Functional heartburn Functional dyspepsia GERD (gastroesophageal reflux disease) IBS (irritable bowel syndrome) Kidney stones Colon cancer screening IBS (irritable bowel syndrome) Nausea & vomiting Irritable bowel syndrome with alternating bowel habits Migraine Tobacco dependence SACHIN (generalized anxiety disorder) GERD (gastroesophageal reflux disease) Asthma HTN (hypertension) Surgical History Surgical History Hx laparoscopic cholecystectomy 01/31/22 History of tonsillectomy History of placement of ear tubes History of back surgery Family History Family History Mother Diabetes mellitus Hypertension Abnormal bleeding time Grandparent Cerebrovascular accident Social History Social History Social History: drinks coffee daily Smoking packs per day: 1 Smoking cigarettes per day: 20.0 Years smoked: 14 Smoking pack-years: 14.00 Smoking status: Current every day smoker Tobacco type: cigarettes Alcohol intake: current Alcohol use details: Occasionally Substance use: current Substance use type: marijuana Other substance usage details: vape/edibles to help sleep Lack of Transportation: No Lack of Food: Never True Current Housing: I Have Housing Concerned About Future Housing: No Difficulty Paying Gas/Electric Bills: No Difficulty Paying for Meds: No Currently Unemployed: No Education: Bachelor's Degree Difficulty w/ Childcare or Family Care: No Living arrangements: with family Additional living arrangements comments: Occupation/Education: occupation 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[employer] Gender identity (if verbalized by the patient): Female Spiritual care concerns: No Meds Home Medications and Allergies Home Medications ?Medication ?Instructions ?Recorded ?Confirmed ?Type venlafaxine 75 mg tablet 75 mg PO DAILY 02/16/20 12/31/24 History meclizine 12.5 mg tablet 12.5 mg PO TID PRN dizziness #30 12/31/23 12/16/24 Rx tabs sumatriptan succinate 50 mg tablet See Rx Instructions .Route 05/20/24 12/31/24 Rx .COMPLEX #90 tabs albuterol sulfate 0.63 mg/3 mL 0.63 mg (3 mL) inhalation Q4-6H 06/02/24 12/16/24 Rx solution for nebulization PRN shortness of breath or wheezing #75 mL albuterol sulfate 90 mcg/actuation 1 puff inhalation Q4H PRN 06/02/24 12/16/24 Rx aerosol inhaler (Ventolin HFA) shortness of breath or wheezing #8 grams azithromycin 250 mg tablet See Rx Instructions PO .COMPLEX #6 06/02/24 12/16/24 Rx (Zithromax Z-Manolo) tabs benzonatate 200 mg capsule 200 mg PO BID PRN cough #30 caps 06/02/24 12/16/24 Rx dextroamphetamine-amphetamine 10 10 mg PO DAILY 06/02/24 12/31/24 History mg tablet paroxetine HCl 12.5 mg 12.5 mg PO DAILY 06/02/24 12/31/24 History tablet,extended release 24 hr amitriptyline 25 mg tablet 25 mg PO QHS #30 tabs 07/20/24 12/31/24 Rx dicyclomine 20 mg tablet 20 mg PO .every 6 hours PRN #120 07/20/24 12/16/24 Rx tabs lorazepam 0.5 mg tablet 0.5 mg PO Q8H PRN anxiety #20 tabs 08/26/24 12/16/24 Rx amlodipine 10 mg tablet See Rx Instructions .Route 08/30/24 12/31/24 Rx .COMPLEX #30 tabs propranolol 40 mg tablet See Rx Instructions .Route 10/12/24 12/31/24 Rx .COMPLEX #60 tabs esomeprazole magnesium 40 mg See Rx Instructions .Route 11/15/24 12/31/24 Rx capsule,delayed release .COMPLEX #30 caps clonidine HCl 0.1 mg tablet 0.1 mg PO DAILY 12/16/24 12/31/24 History Allergies Allergy/AdvReac Type Severity Reaction Status Date / Time amoxicillin AdvReac Intermediate Diarrhea Verified 12/31/24 09:50 Penicillins AdvReac Intermediate Diarrhea Verified 12/31/24 09:50 Vital Signs Vital Signs - 24 hr 12/31/24 09:54 Temperature 97 F L Pulse Rate 63 Respiratory Rate 16 Blood Pressure 125/74 Pulse Oximetry 100 Oxygen Delivery Room Air Exam Const: General: comfortable and no acute distress HENMT: Face/Nose/Sinus: Normal nares present Eyes: General: appearance normal, both eyes and all related structures Neck: Neck: no JVD Resp: Auscultation: clear to auscultation bilaterally Cardio: Rate: regular rate Rhythm: regular rhythm GI: Inspection: non-distended GI Palp: Yes Soft to palpation Skin: General skin exam: normal color Neuro: General: gait normal Speech: normal speech Extrem: General: normal to inspection Psych: Mental Status: mental status grossly normal Assessment and Plan Assessment and plan (1) Irritable bowel syndrome with alternating bowel habits: Code(s): K58.2 - Mixed irritable bowel syndrome Status: Acute (2) History of adenomatous polyp of colon: Code(s): Z86.0101 - Personal history of adenomatous and serrated colon polyps Status: Acute Assessment and Plan: colonoscopy
[2024-12-31 10:34] VITALS: BP 88/51; PULSE 76; RESP 19; O2SAT 99
--- NOTE | 2024-12-31 10:34 | S_PTH ---
PATIENT: Lynne Redmond LOC: [facility]#:[id number] AGE/SX: 44/F ROOM: RE12/31/[address]: Ronal Valdes MD : 1980 BED: DIS: 12/31/2024 SPEC #: [id number] RECD: 12/31/24 11:18 STATUS: MI YATES #: [id number] SOFYA: 12/31/24 10:[address]: Ronal Valdes DEPT: [facility] Surgical RECD BY: Ada San ENTERED: 12/31/24 11:18 SP TYPE: Surgical OTHR DR: Sigrid Hernandez, CHURCH COMMUNICATIONS ADMINISTRATOR Tissues: A - Colon Polypectomy B - Colon Biopsy Procedures: Hematoxylin and Eosin Stain Gross and Microscopic Level 4
--- NOTE | 2024-12-31 10:35 | SUR.OPER ---
Sigmoid colon polyp not retrieved, Dr Mendiola aware.
[2024-12-31 10:44] VITALS: BP 90/47; PULSE 70; RESP 20; O2SAT 100
[2024-12-31 10:54] VITALS: BP 91/60; PULSE 66; RESP 24; O2SAT 100
== END 2024-12-31 11:05 | disposition home or self-care (01) ==
PROVIDERS: Anesthesiology; PCP Nurse Practitioner Family; Referring Provider Nurse Practitioner; Visit Provider Internal Medicine Gastroenterology
PROC: 0DJD8ZZ Inspection of Lower Intestinal Tract, Via Natural or Artificial Opening Endoscopic (ICD-10-PCS; CPT 45378; principal; 2024-12-31 11:15)
DX: Z12.11 Encounter for screening for malignant neoplasm of colon (principal); K63.5 Polyp of colon; K64.8 Other hemorrhoids; I10 Essential (primary) hypertension; K21.9 Gastro-esophageal reflux disease without esophagitis; K58.2 Mixed irritable bowel syndrome; J45.909 Unspecified asthma, uncomplicated; F41.9 Anxiety disorder, unspecified; F17.290 Nicotine dependence, other tobacco product, uncomplicated; F12.90 Cannabis use, unspecified, uncomplicated; Z79.51 Long term (current) use of inhaled steroids; Z98.890 Other specified postprocedural states; Z90.49 Acquired absence of other specified parts of digestive tract; Z98.1 Arthrodesis status; Z87.442 Personal history of urinary calculi; Z87.19 Personal history of other diseases of the digestive system
CPT/HCPCS: 45380; 45385; 88305; J2704; J7120